=== PATIENT | female | born 1955 | race Two or more races ===

== ENCOUNTER 2020-12-23 10:12 | Emergency (ER) | payer OTHER ==
[~2020-12-23] VITALS: Ht 160 cm; Wt 75.3 kg
[2020-12-23] MEDS ORDERED: SYNTHROID112 MCG PO (10:23)
[2020-12-23] MEDS ORDERED: LOSARTAN-HCTZ1 EAC2 PO (10:23)
[2020-12-23] MEDS ORDERED: PAXIL20 MG PO (10:24)
[2020-12-23] MEDS ORDERED: PEPCID20 MG PO (10:24)
[2020-12-23] MEDS ORDERED: ESTAZOLAM2 MG PO (10:25)
== END 2020-12-23 12:21 | disposition home or self-care (01) ==
LOC: ER 10:12
DX: L72.0 Epidermal cyst (principal); L02.31 Cutaneous abscess of buttock